=== PATIENT | male | born 1995 | race Caucasian/White ===

== ENCOUNTER 2016-09-19 18:28 | Emergency (ER) | payer MEDICAID ==
[2016-09-19 18:40] VITALS: RESP 18; O2SAT 100
[2016-09-19 19:09] LABS: RBC URINE 9 /hpf (0-3); URINE BACTERIA OCC (<OCC); URINE BILIRUBIN NEGATIVE (NEGATIVE); URINE COLOR Yellow (YELLOW); URINE GLUCOSE (UA) NORMAL (Normal); URINE KETONE NEGATIVE (NEGATIVE); URINE PROTEIN NEGATIVE (NEGATIVE); URINE UROBILINOGEN NORMAL mg/dL (0.2-1.0); WBC URINE 49 /hpf (0-5)
[2016-09-19 19:10] LABS: URINE BLOOD 1+ (NEGATIVE); URINE LEUKOCYTE ESTERASE 3+ Leu/uL (Negative)
[2016-09-19] MEDS ORDERED: cefTRIAXone (Rocephin) 250 mg Inj IM STA (19:44)
--- NOTE | 2016-09-19 20:05 | C.PDOC ---
History Of Present Illness Patient is a 20 year old male who presents to the ER with a complaint of chest pain and dysuria for the past 2 days. Patient states chest pain is a muscular pain located in the middle of his chest. Patient reports being physically active at the gym daily. Patient also notes being sexually active, reports having 23 sexual partners in the last year, and states he always uses protection. Denies any cough, SOB, nausea, or vomiting. Time Seen by Provider: 09/19/16 19:07 Chief Complaint (Nursing): Chest Pain History Per: Patient History/Exam Limitations: no limitations Onset/Duration Of Symptoms: Days (2) Current Symptoms Are (Timing): Still Present Associated Symptoms: denies: Nausea, Dyspnea Exacerbating Factors: Exertion Past Medical History Reviewed: Historical Data, Nursing Documentation, Vital Signs Vital Signs: Last Vital Signs Temp 98.2 F 09/19/16 20:15 Pulse 50 L 09/19/16 20:15 Resp 18 09/19/16 20:15 BP 129/81 09/19/16 20:15 Pulse Ox 100 09/19/16 20:19 - Medical History PMH: Asthma Surgical History: No Surg Hx Family History: States: Unknown Family Hx - Social History Hx Alcohol Use: No Hx Substance Use: No - Immunization History Hx Tetanus Toxoid Vaccination: No Hx Influenza Vaccination: No Hx Pneumococcal Vaccination: No Review Of Systems Respiratory: Negative for: Cough, Shortness of Breath Gastrointestinal: Negative for: Nausea, Vomiting Physical Exam - Physical Exam Additional Physical Exam Comments: Constitutional: No acute distress. Head: Normocephalic. Atraumatic. Eyes: PERRL. ENT: Moist mucous membranes. Neck: Supple. Cardiovascular: Regular rate. Radial pulses 2+ bilaterally. Chest: Reproducible pain with pectoral muscle use. Respiratory: Clear to auscultation bilaterally. GI: Soft. No tenderness. Nondistended. Back: No tenderness. Musculoskeletal: No tenderness or swelling of extremities. Skin: No rash. Neurologic: Alert, no focal deficit. ED Course And Treatment O2 Sat by Pulse Oximetry: 100 Medical Decision Making Medical Decision Making: Chest x-ray, urine culture, and chlamydia/gc RNA, TMA ordered. Rocephin IM, Zithromax PO administered. EKG results: Sinus rhythm: [address] elevation, no t wave inversion. Chest x-ray results: No infiltrates, consolidation, rib fracture, pneumothorax, or pleural effusion. Disposition - Disposition Disposition: HOME/ ROUTINE Disposition Time: 20:04 Condition: STABLE Prescriptions: Ibuprofen [Motrin] 1 tab PO Q6 #30 tab Instructions: Chest Wall Pain (ED) - Clinical Impression Clinical Impression: Chest wall pain, Dysuria - Scribe Statement The provider has reviewed the documentation as recorded by the Scriberin Cochran All medical record entries made by the Scribe were at my direction and personally dictated by me. I have reviewed the chart and agree that the record accurately reflects my personal performance of the history, physical exam, medical decision making, and the department course for this patient. I have also personally directed, reviewed, and agree with the discharge instructions and disposition.
[2016-09-19 20:17] VITALS: BP 129/81; PULSE 50; TEMP 98.2
--- NOTE | 2016-09-19 21:31 | RAD ---
HISTORY: cp COMPARISON: None available. TECHNIQUE: Chest PA and lateral FINDINGS: LUNGS: No focal consolidation. Please note that chest x-ray has limited sensitivity for the detection of pulmonary masses. PLEURA: No significant pleural effusion identified. No definite pneumothorax . CARDIOVASCULAR: The cardiomediastinal silhouette appears within normal limits of size. OSSEOUS STRUCTURES: No acute osseous abnormality identified. VISUALIZED UPPER ABDOMEN: Unremarkable. OTHER FINDINGS: None. IMPRESSION: No focal consolidation, significant pleural effusion, or definite pneumothorax identified.
== END 2016-09-19 20:17 | disposition home or self-care (01) ==
LOC: C.ER 18:28
DX: R07.89 Other chest pain (principal); R30.0 Dysuria
CPT/HCPCS: 71020; 81001; 87086; 87491; 87591; 96372; 99285; J0696